=== PATIENT | female | born 1995 | race African-American/Black ===

== ENCOUNTER 2024-01-09 21:00 | Emergency (ER) | payer MEDICAID, SELFPAY ==
[2024-01-09 21:03] VITALS: BP 137/88; PULSE 97; RESP 18; TEMP 36.7; O2SAT 99; BMI 29.8
--- NOTE | 2024-01-09 21:20 | ED_ITS ---
HPI - General Adult General Time Seen by Provider: 21:20 Date Seen: 01/09/24 Chief complaint: Arrhythmia/Palpitations Stated complaint: irregular heartbeat Time Seen by Provider: 01/09/24 21:12 Source: patient, family and RN notes reviewed Mode of arrival: ambulatory Limitations: no limitations History of Present Illness HPI narrative: Steven is a very pleasant 28-year-old female previously healthy who comes to the emergency room for evaluation regarding irregular heart rate and chest pains. Patient notes that for 2 days she has been experiencing intermittent episodes of an irregular heartbeat that cause her to have chest pain. She denies shortness of breath or any fever. Her in her recently started a new business of daycare and they think maybe there is some excess stress that might be causing this. However she is very tearful and worried. She had a similar event approximately 10 months ago but never sought any medical attention. She denies any significant illness. Parents are healthy. No early heart disease. She has not had any cough cold congestion or fever. No abdominal pain nausea or vomiting. She did travel on an airplane in September and experience a lot of lower extremity edema but denies calf pain tenderness at this time. She has not had a history of DVT. Her is present very loving and supportive. In terms of timing, Steven cannot relate this to any specific event. When it gets bad there is really nothing she can do to make it go way although she has try to sit. It just goes away on its own. No drug use. Related Data Home Medications Medication Instructions Recorded Confirmed No Known Home Medications 01/09/24 01/09/24 Allergies Allergy/AdvReac Type Severity Reaction Status Date / Time No Known Drug Allergies Allergy Verified 01/09/24 21:10 Review of Systems Status of ROS: Reports: 10 or more systems reviewed and unremarkable except as noted in History and below Narrative: Started. Today Const: Denies: fever or chills Eyes: Denies: change in vision ENMT: Denies: throat pain or neck pain Cardio: Reports: chest pain and palpitations; Denies: edema, swelling of feet/ankles, lightheadedness or shortness of breath with exertion Resp: Denies: shortness of breath or cough GI: Denies: abdominal pain, nausea or vomiting : Denies: painful urination or urinary frequency Musculo: Denies: neck pain Integ/Breast: Denies: rash Neuro: Denies: headache Psych: Reports: anxiety [facility] Social History Smoking Status: Never smoker Do you use any of these nicotine containing products: None Second hand tobacco smoke exposure: No How often do you have a drink containing alcohol: never How often do you have six or more drinks on one occasion: Never AUDIT-C Alcohol total score: 0 Non-prescribed substance use: denies use service: No Exam Narrative: Exam Narrative: Alert and oriented. Tearful and obviously frustrated. Eyes are clear. Neck is supple. No lymphadenopathy . Heart with an irregularly irregular rhythm but normal rate. Extra beats are noted. I do believe there is a compensatory for cause but I cannot be sure. No murmurs are auscultated. Lungs are clear. Abdomen soft nontender. Lower extremities without edema or calf tenderness. Moving all extremities. Const: Vital Signs, click to edit/add: Vital Signs - 24 hr 01/09/24 21:03 01/09/24 22:16 01/10/24 00:52 Temperature 98.1 F 98.0 F Pulse Rate [Pulse Oximeter] 97 80 74 Respiratory Rate 18 16 16 Blood Pressure [Ri t Upper Arm] 137/88 117/84 112/84 Pulse Oximetry 99 97 98 Oxygen Delivery Me thod Room Air Room Air Room Air Documenting provider has reviewed patient's vital signs: yes Course Course ED Course: Differential diagnosis includes but is not limited to atrial fibrillation, atrial flutter other arrhythmia, palpitations, low magnesium, electrolyte abnormality, acute coronary event, PE, pericarditis. At this time will place patient on monitor technician obtain EKG and troponin. Will also check chest x-ray D-dimer CBC chemistry panel and TSH as well as magnesium. Reevaluation(s) Reevaluation #1: Spoke to patient about her lab values. She does have a normal white count and hemoglobin. Her D-dimer is elevated at 1.05 with no obvious explanation. We will be obtaining Doppler of the lower extremities and a CT of the chest. Fortunately with fluid bolus her symptoms have gone away. Reevaluation #2: With any movement patient has PVCs markedly increased to almost a bigeminy pattern. At this time will give patient 12.5 mg of p.o. atenolol and 2 g of IV magnesium. Further discussion notes that she does do pre workout with caffeine before she goes to the gym. However this is not a new brand or new to her. Otherwise she only has 1 cup of coffee in the morning. No use of alcohol or drugs. Also denies any recent antihistamines. Reevaluation #3: Patient currently feeling better after IV magnesium. Is not completely done at this point. PVCs much reduced. Have switched option of atenolol to metoprolol given her breast-feeding status. At this time will hold off on any beta bl ocker. However, I did discuss risks benefits of metoprolol use with Hala if needed. I did state that it was secreted in small amounts in breast milk but according to up-to-date did not appear to have significant impact on the child in a situation. If needed we do not recommend only 12.5 mg x 1. This is conveyed to my partner Dr. Navas. Vital Signs Vital signs: Initial Vital Signs Temperature 98.1 F 01/09/24 21:03 Temperature Source Temporal Artery Scan 01/09/24 21:03 Pulse Rate 97 01/09/24 21:03 Respiratory Rate 18 01/09/24 21:03 Blood Pressure 137/88 01/09/24 21:03 Blood Pressure Mean 104 01/09/24 21:03 Pulse Oximetry 99 01/09/24 21:03 Oxygen Delivery Method Room Air 01/09/24 21:03 Vital Signs Temperature 98.1 F 01/09/24 21:03 Pulse Rate 97 01/09/24 21:03 Respiratory Rate 18 01/09/24 21:03 Blood Pressure 137/88 01/09/24 21:03 Pulse Oximetry 99 01/09/24 21:03 Oxygen Delivery Method Room Air 01/09/24 21:03 Temperature 98.0 F 01/09/24 22:16 Pulse Rate 74 01/10/24 00:52 Respiratory Rate 16 01/10/24 00:52 Blood Pressure 112/84 01/10/24 00:52 Pulse Oximetry 98 01/10/24 00:52 Oxygen Delivery Method Room Air 01/10/24 00:52 Medications Administered Medications: Generic Name Dose Route Start Last Admin Trade Name Freq PRN Reason Stop Dose Admin Magnesium Sulfate 2 gm in 50 mls @ 150 mls/hr 01/10/24 00:58 01/10/24 01:08 Magnesium Iv IVPB 01/10/24 01:17 150 mls/hr ONCE ONE Administration Magnesium Oxide 400 mg 01/10/24 00:13 01/10/24 00:46 Magnesium Oxide 400 Mg Tablet PO 01/10/24 00:14 400 mg ONCE ONE Administration Discontinued Medications Generic Name Dose Route Start Last Admin Trade Name Ana PRN Reason Stop Dose Admin Sodium Chloride 500 mls @ 500 mls/hr 01/09/24 21:20 01/10/24 00:27 0.9 % Sodium Chloride 500 Ml IV 01/09/24 22:19 Infused .Q1H ONE Infusion Ketorolac Tromethamine 15 mg 01/09/24 23:58 01/10/24 00:28 Ketorolac 15 Mg/Ml Inj IVP 01/09/24 23:59 15 mg ONCE ONE Administration Medical Decision Making MDM Narrative Medical decision making narrative: 1. Frequent PVCs-resolved with IV fluids. Patient also given magnesium p.o. as her serum level is 1.8 so most likely she is whole body low. Patient noted to be feeling better. However, when nursing went back in to talk to her about her job PVCs return. Additionally, any movement greatly and he decreases PVCs and they are very anxiety provoking. Initially we are going to replace magnesium with p.o. dosing but given irritability of heart at this time will use 2 g of IV magnesium. This appears to be an anxiety or stress related thing. However PVCs on initial EKG were very prevalent and I do suggest follow-up with primary MD for a Holter monitor or ZIO patch. Recommend magnesium 3-400 mg daily. Will be giving patient a note for work so that she can follow up with her primary. Fortunately EKGs reassuring and troponin negative x2 and thus no evidence of acute coronary event, myocarditis. TSH is normal. 2. Elevated D-dimer-not have explanation for this. Chest CT negative for PE. Lower extremity Dopplers negative for DVT. Oximetry within normal limits. No chest pain at rest. 3. Disposition-home at this time. Follow-up with primary MD for initiation of Holter monitor and cardiac follow-up if necessary. Recommend magnesium 3-400 mg daily. Return to the emergency room as needed. 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 states that he will go and take care of all the necessary direction. She seems relieved by this. Return to the emergency room as needed. I had ordered atenolol 12.5 mg but patient is noted to be breast-feeding. Will see how the magnesium works and if needed a beta-mindy such as metoprolol would likely be a better choice. Will sign this patient out to my partner Dr. Navas Lab Data Lab results reviewed: Yes I reviewed the patient's lab results Labs: Lab Results 01/09/24 01/09/24 01/09/24 Range/Units 21:35 21:49 23:50 WBC 7.77 (4.50-11.00) K/uL RBC 4.77 (4.00-5.20) m/uL Hgb 12.6 (12.0-16.0) gm/dL Hct 39.1 (33.0-51.0) % MCV 82 (80-100) fL MCH 26 (26-34) pg MCHC 32 (32-36) gm/dL RDW Coeff of Dara 14.3 (11.5-15.5) % Plt Count 289 (140-440) K/uL Neut % (Auto) 53.5 (42.0-72.0) % Lymph % (Auto) 39.1 (20-44) % [place] % (Auto) 5.8 (0.0-11.0) % Eos % (Auto) 0.9 (0.0-7.0) % Baso % (Auto) 0.4 (0.0-3.0) % Neut # (Auto) 4.16 (1.7-7.0) K/uL Lymph # (Auto) 3.04 H (0.90-2.90) K/uL [place] # (Auto) 0.50 (0.00-0.90) K/UL Eos # (Auto) 0.07 (0.00-0.50) K/uL Baso # (Auto) 0.03 (0.00-0.30) K/uL Abs Immat Gran (auto) 0.02 (0.00-0.30) K/uL Imm/Tot Granulo (auto) 0.3 % D-Dimer Quant (PE/DVT) 1.05 H (0.00-0.50) ug/ml Sodium 138 (135-149) mmol/L Potassium 4.5 (3.6-5.1) mmol/L Chloride 109 (96-114) mmol/L Carbon Dioxide 28 (20-32) mmol/L Anion Gap 1 L (7-15) mEq/L BUN 16 (5-24) mg/dL Creatinine 0.5 (0.5-1.5) mg/dL Estimated Creat Clear 137.33 Estimated GFR 130 ml/min Glucose 96 (60-115) mg/dL Calcium 8.9 (8.4-10.6) mg/dL Magnesium 1.8 (1.5-2.6) mg/dL TSH 2.640 (0.270-4.200) uIU/mL Lab Acknowledgement Test Added POC Troponin I 0.00 L (0.01-0.04) ng/ml 01/10/24 Range/Units 00:15 WBC (4.50-11.00) K/uL RBC (4.00-5.20) m/uL Hgb (12.0-16.0) gm/dL Hct (33.0-51.0) % MCV (80-100) fL MCH (26-34) pg MCHC (32-36) gm/dL RDW Coeff of Dara (11.5-15.5) % Plt Count (140-440) K/uL Neut % (Auto) (42.0-72.0) % Lymph % (Auto) (20-44) % Highlands % (Auto) (0.0-11.0) % Eos % (Auto) (0.0-7.0) % Baso % (Auto) (0.0-3.0) % Neut # (Auto) (1.7-7.0) K/uL Lymph # (Auto) (0.90-2.90) K/uL Highlands # (Auto) (0.00-0.90) K/UL Eos # (Auto) (0.00-0.50) K/uL Baso # (Auto) (0.00-0.30) K/uL Abs Immat Gran (auto) (0.00-0.30) K/uL Imm/Tot Granulo (auto) % D-Dimer Quant (PE/DVT) (0.00-0.50) ug/ml Sodium (135-149) mmol/L Potassium (3.6-5.1) mmol/L Chloride (96-114) mmol/L Carbon Dioxide (20-32) mmol/L Anion Gap (7-15) mEq/L BUN (5-24) mg/dL Creatinine (0.5-1.5) mg/dL Estimated Creat Clear Estimated GFR ml/min Glucose (60-115) mg/dL Calcium (8.4-10.6) mg/dL Magnesium (1.5-2.6) mg/dL TSH (0.270-4.200) uIU/mL Lab Acknowledgement POC Troponin I 0.00 L (0.01-0.04) ng/ml Imaging Data Chest x-ray: Attestation: I have reviewed the pertinent imaging results. My impression: No obvious abnormality. CT scan - chest: Attestation: I have reviewed the pertinent imaging results. Radiologist's impression: Heart and vasculature: Contrast opacification of the pulmonary arterial tree is adequate. No sign of pulmonary embolism. Heart size is normal. Thoracic aorta and pulmonary artery are normal in caliber. Lungs and pleura: Lungs and pleural spaces are clear. No suspicious nodules or infiltrates. No pleural effusions, pleural thickening, or pneumothorax. Lymph nodes/mediastinum: No mediastinal, hilar, or axillary adenopathy. Thyroid gland is unremarkable. Chest wall: No masses. Upper abdomen: No acute findings. Bones: Unremarkable for age. IMPRESSION: No evidence of pulmonary embolism or acute intrathoracic abnormality. ECG Data Attestation: I personally reviewed and interpreted this ECG as follows: Interpretation: EKG by my read shows sinus rhythm at a rate of 88. Frequent PVCs noted otherwise no acute ST or T-wave changes. WA and QT intervals within normal limits. EKG 2. By my read shows sinus rhythm at a rate of 68. PVCs have resolved. QT and WA intervals within normal limits. Discharge Plan Discharge Clinical Impression: Palpitations, Anxiety Patient Disposition: Home, Self-Care Condition: Improved Additional Instructions: 1. Continue magnesium supplementation.. Usually 300 mg daily for a female is sufficient. I suggest using magnesium glycinate as this is well absorbed. 2. Follow-up with your primary MD for a Holter or Zio monitor. With cardiology consult as needed. 3 eliminate workout with caffeine. 3. Return to the emergency room as needed. Follow-up with [facility]: [phone] or our clinic attached to the hospital at [phone] Prescriptions: No Action No Known Home Medications Follow Up/Referrals: Provider,Not a Local [Primary Care Provider] - Stand Alone Forms: [employer] Info Instructions
--- NOTE | 2024-01-09 21:20 | XR_ITS ---
Patient: RELL HERNANDEZ Facility:?[facility] Patient ID:?[id number] Site Patient ID:?[id number]. Site :?1995 Study:?XRay-Chest PORTABLE-01/09/2024 9:47:15 PM Ordering Physician:CHERRY Final Report: INDICATION: Chest pressure. Irregular heart beat. COMPARISON: None. TECHNIQUE: Single portable view of the chest. FINDINGS: Lungs are clear. No pleural effusion. No pneumothorax. Normal cardiomediastinal silhouette. No osseous abnormalities. IMPRESSION: No acute findings. Dictated by Kip Rai MD @ 01/09/2024 9:53:25 PM Signed by:?Kip Rai MD @01/09/2024 9:53:25 PM (Electronic Signature)
[2024-01-09 21:44] LABS: Basophils Absolute Auto 0.03 K/uL (0.00-0.30); Basophils Percent Auto 0.4 % (0.0-3.0); Eosinophils Absolute Auto 0.07 K/uL (0.00-0.50); Eosinophils Percent Auto 0.9 % (0.0-7.0); Hematocrit 39.1 % (33.0-51.0); Hemoglobin* 12.6 gm/dL (12.0-16.0); Immature Granulocytes Abs Auto 0.02 K/uL (0.00-0.30); Immature Granulocytes Pct Auto 0.3 %; Lymphocytes Absolute Auto 3.04 K/uL (0.90-2.90); Lymphocytes Percent Auto 39.1 % (20-44); Mean Corpuscular HGB Conc 32 gm/dL (32-36); Mean Corpuscular Hemoglobin 26 pg (26-34); Mean Corpuscular Volume 82 fL (80-100); Monocytes Percent Auto 5.8 % (0.0-11.0); Neutrophils Absolute Auto 4.16 K/uL (1.7-7.0); Neutrophils Percent Auto 53.5 % (42.0-72.0); Platelet Count* 289 K/uL (140-440); RDW Coefficient of Variation % 14.3 % (11.5-15.5); Red Blood Count 4.77 m/uL (4.00-5.20); White Blood Count* 7.77 K/uL (4.50-11.00)
[2024-01-09 21:49] LABS: Slide Review Reflex No
[2024-01-09] MEDS: 0.9 % SODIUM CHLORIDE 500 ML 500 ML IV (21:53)
[2024-01-09 22:05] LABS: Chloride* 109 mmol/L (96-114); Potassium* 4.5 mmol/L (3.6-5.1); Sodium* 138 mmol/L (135-149)
[2024-01-09 22:07] LABS: Creatinine* 0.5 mg/dL (0.5-1.5); D Dimer Quantitative* 1.05 ug/ml (0.00-0.50); Est. Creatinine Clearance* 137.33; Estimated Glomerular Filt Rate 130 ml/min
[2024-01-09 22:08] LABS: Anion Gap 1 mEq/L (7-15); Blood Urea Nitrogen* 16 mg/dL (5-24); Calcium* 8.9 mg/dL (8.4-10.6); Carbon Dioxide* 28 mmol/L (20-32); Glucose* 96 mg/dL (60-115); Magnesium* 1.8 mg/dL (1.5-2.6)
[2024-01-09 22:16] VITALS: BP 117/84; PULSE 80; RESP 16; TEMP 36.7; O2SAT 97
--- NOTE | 2024-01-09 22:38 | CT_ITS ---
Patient: RELL HERNANDEZ Facility:?[facility] Patient ID:?[id number] Site Patient ID:?[id number]. Site :?1995 Study:?CT-Chest CHEST PE PROTOCOL W/95CC [id number]/20/2024 11:15:40 PM Ordering Physician:CHERRY Final Report: INDICATION: Chest pressure. Irregular heart beat. TECHNIQUE: CT chest PE was acquired with 95 cc Isovue 370 IV contrast. COMPARISON: Same day chest radiograph. FINDINGS: Heart and vasculature: Contrast opacification of the pulmonary arterial tree is adequate. No sign of pulmonary embolism. Heart size is normal. Thoracic aorta and pulmonary artery are normal in caliber. Lungs and pleura: Lungs and pleural spaces are clear. No suspicious nodules or infiltrates. No pleural effusions, pleural thickening, or pneumothorax. Lymph nodes/mediastinum: No mediastinal, hilar, or axillary adenopathy. Thyroid gland is unremarkable. Chest wall: No masses. Upper abdomen: No acute findings. Bones: Unremarkable for age. IMPRESSION: No evidence of pulmonary embolism or acute intrathoracic abnormality. Please note that all CT scans at this facility use dose modulation, iterative reconstruction, and/or weight-based dosing when appropriate to reduce radiation dose to as low as reasonably achievable. Dictated by Joshua Wood MD @ 01/10/2024 12:04:22 AM Signed by:?Joshua Wood MD @01/10/2024 12:04:22 AM (Electronic Signature)
--- NOTE | 2024-01-09 22:44 | US_ITS ---
Patient: RELL HERNANDEZ Facility:?[facility] Patient ID:?[id number] Site Patient ID:?[id number]. Site :?1995 Study:?US-Extremity Bilateral LEV BILATERAL-01/09/2024 11:39:39 PM Ordering Physician:?BHAKTI SANODVAL M.D. Final Report: INDICATION: Elevated D-dimer. TECHNIQUE: Ultrasound venous duplex bilateral lower extremity. Compression venous exam was performed using perez-scale, color Doppler, and spectral Doppler analysis. COMPARISON: None. FINDINGS: Deep veins: Sonographic imaging demonstrates the bilateral common femoral, deep femoral, superficial femoral, popliteal, and posterior tibial veins to be fully compressible with normal color Doppler blood flow. Superficial veins: Greater saphenous vein is fully compressible. No popliteal cyst. IMPRESSION: No sign of deep venous thrombosis in the bilateral lower extremities. Dictated by Joshua Wood MD @ 01/10/2024 12:41:51 AM Signed by:?Joshua Wood MD @01/10/2024 12:41:51 AM (Electronic Signature)
[2024-01-10] MEDS: KETOROLAC 15 MG/ML inj IVP (00:28)
[2024-01-10] MEDS: MAGNESIUM OXIDE 400 MG TABLET PO (00:46)
[2024-01-10 00:52] VITALS: BP 112/84; PULSE 74; RESP 16; O2SAT 98
--- NOTE | 2024-01-10 00:53 | PC.NURSE ---
Pt visiting with in room, very attentive and supportive. 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 Pt tearful at times. States she has support, just feels she has a lot to do. Pt feels frequent PVCs, runs of bigeminy at times.
[2024-01-10] MEDS: MAGNESIUM IV 2 GM/50 ML PIGGYBACK IVPB (01:08)
--- NOTE | 2024-01-10 01:34 | PC.NURSE ---
Pt pumping, given pb toast and juice.
[2024-01-10] MEDS: 0.9 % SODIUM CHLORIDE 500 ML 500 ML IV (01:50)
[2024-01-10 03:18] VITALS: BP 114/70; PULSE 70; RESP 16; TEMP 36.4
== END 2024-01-10 03:19 | disposition home or self-care (01) ==
PROVIDERS: Emergency Provider Family Medicine
DX: R00.2 Palpitations (principal); I49.3 Ventricular premature depolarization; F41.9 Anxiety disorder, unspecified
CPT/HCPCS: 36415; 71045; 71275; 80048; 83735; 84443; 84484; 85025; 85379; 93005; 93970; 96365; 96375; 99284; 99285; A9270; J1885; J3475; J7030; Q9967